=== PATIENT | male | born 1945 | race Caucasian/White ===

== ENCOUNTER → 2025-02-06 | Outpatient (CLI) | payer MEDICARE, OTHER, SELFPAY ==
--- NOTE | 2025-02-06 12:36 | MRI_ITS ---
PROCEDURE: SPINE LUMBAR (ROUTINE) 02/06/2025 REASON FOR EXAM: LUMBAR RADICLUPATHY TECHNIQUE: Procedure Code: MRISPL Modality: MR Procedure: SPINE LUMBAR (ROUTINE) COMPARISON: Lumbar spine x-ray 01/01/2025. FINDINGS: Vertebrae: Preserved in height and signal. Status post partial laminectomies and removal of the posterior spinal processes of L3, L4 and L5. Alignment: Retrolisthesis L2 on L3 by 2 mm. Conus Medullaris: Unremarkable. T12-L1: Disc desiccation. Disc bulge. No significant foraminal or canal stenosis. L1-2: Disc desiccation. Disc bulge. Facet joint arthropathy. Moderate bilateral foramina stenosis. No significant canal stenosis. L2-3: L2-L3 disc bulge. Facet joint arthropathy. Moderate bilateral foramina stenosis. No canal stenosis. L3-4: Status post laminectomies. Facet joint arthropathy. Mild bilateral foramina stenosis. L4-5: Status post laminectomies. Severe narrowing of the proximal foramina. No significant canal stenosis. L5-S1: Disc bulge. Facet joint arthropathy. Severe right and moderate left foramina stenosis. Sacrum: Unremarkable. MRI/Spine Lumbar (Routine) IMPRESSION: Postsurgical changes without significant canal stenosis. Multilevel foramina stenosis, predominantly for severe right and moderate left foramina stenosis at L5-S1. Severe narrowing of the proximal foraminae bilateraly at L4-L5. Reading Location: [facility]
== END | disposition home or self-care (01) ==
LOC: OPMRI 12:34
PROVIDERS: PCP Family Medicine; Referring Provider Orthopaedic Surgery Orthopaedic Surgery of the Spine; Visit Provider Orthopaedic Surgery Orthopaedic Surgery of the Spine
DX: M54.16 Radiculopathy, lumbar region (principal); M21.371 Foot drop, right foot
CPT/HCPCS: 72148